=== PATIENT | female | born 2000 | race Caucasian/White ===

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

== ENCOUNTER 2021-04-15 14:06 | Outpatient (CLI) | payer OTHER, SELFPAY ==
[2021-04-15 15:30] LABS: SARS-CoV-2 Ag Negative (Negative)
== END 2021-04-15 14:07 | disposition home or self-care (01) ==
LOC: CHSLAB 14:09
PROVIDERS: PCP Family Medicine; Visit Provider Family Medicine
DX: J02.9 Acute pharyngitis, unspecified (principal); Z20.822 Contact with and (suspected) exposure to COVID-19
CPT/HCPCS: 87081; 87426; 87880; C9803

== ENCOUNTER 2021-04-21 08:46 | Outpatient (CLI) | payer OTHER, SELFPAY ==
[2021-04-21 10:42] LABS: SARS-CoV-2 Ag Positive (Negative)
== END 2021-04-21 08:47 | disposition home or self-care (01) ==
LOC: CHSLAB 08:48
PROVIDERS: PCP Family Medicine; Visit Provider Family Medicine
DX: U07.1 COVID-19 (principal)
CPT/HCPCS: 87426; C9803